=== PATIENT | female | born 1995 | race Caucasian/White ===

== ENCOUNTER 2019-08-22 23:44 | Inpatient (IN) ==
[2019-08-22 23:59] LABS: URINE SOURCE VOIDED
[2019-08-23] MEDS ORDERED: REGLAN PO PRN (00:06)
[2019-08-23] MEDS ORDERED: KEFZOL 2 GM/D5W 2 GM/50 ML IVPB IV PRN (00:06)
[2019-08-23] MEDS ORDERED: PEPCID PO PRN ×2 (00:06)
[2019-08-23] MEDS ORDERED: PEPCID IV PRN (00:06)
[2019-08-23] MEDS ORDERED: TYLENOL PO PRN (00:06)
[2019-08-23] MEDS ORDERED: AMPICILLIN 2 GM in NS 100 ML IV ONE (00:06)
[2019-08-23] MEDS ORDERED: STADOL IV PRN (00:06)
[2019-08-23] MEDS ORDERED: ZOFRAN IV PRN (00:06)
[2019-08-23] MEDS ORDERED: XYLOCAINE-MPF 1% INJ PRN (00:10)
[2019-08-23] MEDS ORDERED: MINERAL OIL TOP PRN (00:10)
[2019-08-23 00:11] LABS: BILIRUBIN URINE NEGATIVE (NEGATIVE); BLOOD URINE NEGATIVE (NEGATIVE); COLOR YELLOW; GLUCOSE URINE NEGATIVE (NEGATIVE); KETONE URINE NEGATIVE (NEGATIVE); LEUKOCYTES URINE NEGATIVE (NEGATIVE); NITRITE URINE NEGATIVE (NEGATIVE); PH URINE 7.5; PROTEIN URINE NEGATIVE (NEGATIVE); SP GRAVITY URINE 1.015; TURBIDITY URINE CLEAR (CLEAR); UROBILINOGEN URINE NORMAL (NORMAL)
[2019-08-23] MEDS ORDERED: SODIUM CHLORIDE 0.9% INJ SCH (00:15)
[2019-08-23] MEDS ORDERED: PITOCIN 30 UNITS/NS 30 UNIT/500 ML IV.SOLN IV SCH ×2 (00:15→07:30)
[2019-08-23 00:19] LABS: UR AMPHETAMINES QUAL NONE DETECTED (NONE DETECT); UR BARBITUATES QUAL NONE DETECTED (NONE DETECT); UR BENZODIAZEPIN QUAL NONE DETECTED (NONE DETECT); UR CANNABINOIDS QUAL NONE DETECTED (NONE DETECT); UR COCAINE QUAL NONE DETECTED (NONE DETECT); UR METHADONE QUAL NONE DETECTED (NONE DETECT); UR OPIATES QUAL NONE DETECTED (NONE DETECT); UR OXYCODONE QUAL NONE DETECTED (NONE DETECT); UR PCP QUAL NONE DETECTED (NONE DETECT)
[2019-08-23] MEDS: LR 1,000 ML IV SCH ×2 (00:40→03:30)
[2019-08-23 01:52] LABS: BASO# 0.02 X1000 (0.0-0.2); BASO% 0.2 % (0.0-0.8); EOS# 0.02 X1000 (0.0-0.7); EOS% 0.2 % (0.0-10.0); HEMATOCRIT 41.7 % (37.0-47.0); HEMOGLOBIN 13.7 g/dL (12.0-16.0); IMM GRAN# 0.26 X1000 (0.0-0.04); IMM GRAN% 2.1 % (0.0-0.5); LYMPH# 1.67 X1000 (1.2-3.4); LYMPH% 13.7 % (20.5-51.1); MCH 29.5 PG (27-31); MCHC 32.9 g/dL (33-37); MCV 89.9 FL (81-99); MONO# 1.29 X1000 (0.11-0.59); MONO% 10.6 % (1.7-9.3); MPV 12.9 FL (7.4-10.4); NEUT# 8.92 X1000 (1.4-6.5); NEUT% 73.2 % (42.2-75.2); PLT 208 X1000 (130-400); RBC 4.64 XMIL (4.2-5.4); RDW 14.6 % (11.5-14.5); WBC 12.18 X1000 (4.8-10.8)
[2019-08-23] MEDS ORDERED: FENTANYL IV ONE (01:54)
[2019-08-23] MEDS ORDERED: NAROPIN 0.2% INJ ONE (01:55)
[2019-08-23] MEDS ORDERED: NEO-SYNEPHRINE IV ONE (01:56)
[2019-08-23] MEDS ORDERED: SODIUM CHLORIDE 0.9% INJ ONE (01:57)
[2019-08-23] MEDS ORDERED: FENTANYL-BUPIV-NS 500 MCG-0.125% 250 ML EPIDURAL SCH (02:23)
[2019-08-23] MEDS ORDERED: AMPICILLIN 1 GM in NS 50 ML IV SCH (04:09)
[2019-08-23] MEDS ORDERED: BOOSTRIX VACCINE IM ONE (07:29)
[2019-08-23] MEDS ORDERED: BENADRYL PO PRN (07:29)
[2019-08-23] MEDS ORDERED: PITOCIN IM PRN (07:29)
[2019-08-23] MEDS ORDERED: BENADRYL IV PRN (07:29)
[2019-08-23] MEDS ORDERED: CYTOTEC PO PRN (07:29)
[2019-08-23] MEDS ORDERED: ATARAX PO PRN (07:29)
[2019-08-23] MEDS ORDERED: M-M-R II VACCINE SUBQ ONE (07:29)
[2019-08-23] MEDS ORDERED: AMBIEN PO PRN (07:29)
[2019-08-23] MEDS ORDERED: HYDROXYZINE IM PRN (07:29)
[2019-08-23] MEDS ORDERED: NORCO-5 PO PRN (07:29)
[2019-08-23] MEDS ORDERED: PITOCIN 20 UNITS/NS 20 UNITS/1,000 ML IV.SOLN IV SCH (07:30)
[2019-08-23] MEDS: MOTRIN PO PRN ×3 (08:00→23:39)
[2019-08-23] MEDS: PERI MEDS (DERMOPLAST/NUPERCAINAL/TUCKS) MISC PRN (08:01)
[2019-08-23] MEDS: NORCO-10 PO PRN ×2 (15:07→22:42)
[2019-08-23] MEDS: PERICOLACE PO SCH (22:41)
[2019-08-24 05:25] LABS: BASO# 0.02 X1000 (0.0-0.2); BASO% 0.2 % (0.0-0.8); EOS# 0.05 X1000 (0.0-0.7); EOS% 0.4 % (0.0-10.0); HEMATOCRIT 36.1 % (37.0-47.0); HEMOGLOBIN 11.7 g/dL (12.0-16.0); IMM GRAN# 0.13 X1000 (0.0-0.04); LYMPH# 1.71 X1000 (1.2-3.4); LYMPH% 13.1 % (20.5-51.1); MCHC 32.4 g/dL (33-37); MCV 92.6 FL (81-99); MONO# 0.99 X1000 (0.11-0.59); MONO% 7.6 % (1.7-9.3); MPV 11.9 FL (7.4-10.4); NEUT# 10.19 X1000 (1.4-6.5); NEUT% 77.7 % (42.2-75.2); PLT 161 X1000 (130-400); RDW 14.7 % (11.5-14.5); WBC 13.09 X1000 (4.8-10.8)
[2019-08-24] MEDS: NORCO-10 PO PRN ×4 (06:05→19:10)
--- NOTE | 2019-08-24 08:20 | PROGRESS NOTE ---
DATE: 08/24/2019 SUBJECTIVE: A 24-year-old female G 1 , P 0-1-0-1, day number 1 status post spontaneous vaginal delivery with second-degree laceration. Currently, the patient states to be feeling well. The patient states decreased lochia. The patient is ambulating and voiding urine without complaints. The patient states she has not had a bowel movement yet. The patient has no nausea or vomiting, tolerating oral diet. The patient has not had a bowel movement but has passed gas. The patient states she has plans to take control pills. She states that she has plans for bottle feeding. OBJECTIVE: Vital signs: Current temperature 97.7, heart rate 69, respiratory rate 20, blood pressure 122/77, oxygen 98 on room air. General: Alert, oriented, no acute distress. Neck: Supple. No JVD. HEENT: Mucosa is pink and moist. Anicteric. Acyanotic. Chest: Lungs clear to auscultation. No rales, no rhonchi. Cardiovascular: Regular rate and rhythm. No rubs, no murmurs or gallops. Abdomen: Soft, nontender. Uterus is firm below the level of the umbilicus. Musculoskeletal: 2+ pedal pulses bilaterally. No pedal edema. LABORATORY: White blood cells 13, hemoglobin 11.7, hematocrit 36.6, platelets are 161,000. RPR nonreactive. Blood type O positive, RH negative. ASSESSMENT: A 24-year-old 1 now para 0-1-0-1 day number 1 status post spontaneous vaginal delivery with second-degree laceration at 35 weeks and 3/7 days. PLAN: 1. Routine care. 2. P.o. pain control as needed. 3. Encourage ambulation. 4. Contraception. The patient stated desire to resume taking oral contraceptive pills. 5. The patient states desire to follow up with Dr. Whitten once out of the hospital for routine visit. Dictated by Santhosh Canada, Medical Student for Leeanna Whitten DO This chart was documented by, Obie Shaver Student and accurately reflects the services performed, treatment plan and medical decisions as attested by the providers signature Leeanna Whitten DO. I personally saw and evaluated the pt with MS-3 and agree with assessment and plan. Discussed contraception options with pt and with discussed further in outpt setting. Advised no coitus x 6 weeks and increased ambulation. Based on currently findings, likely d/c home tomorrow. MTDD
[2019-08-24] MEDS: MOTRIN PO PRN ×2 (09:54→19:10)
[2019-08-24] MEDS: PERI MEDS (DERMOPLAST/NUPERCAINAL/TUCKS) MISC PRN (11:36)
[2019-08-24] MEDS: PATIENT'S OWN MED PO SCH (21:35)
[2019-08-24] MEDS: PERICOLACE PO SCH (21:38)
[2019-08-24] MEDS ORDERED: FLAGYL PO SCH (21:45)
[2019-08-25] MEDS: NORCO-10 PO PRN ×3 (00:57→11:25)
[2019-08-25] MEDS: MOTRIN PO PRN (04:39)
[2019-08-25] MEDS: PATIENT'S OWN MED PO SCH (08:36)
[2019-08-25 08:46] VITALS: BP 139/82
--- NOTE | 2019-08-25 09:11 | HISTORY AND PHYSICAL ---
HISTORY OF PRESENT ILLNESS: The patient is a 24-year-old, 1, para 0, who presented to Labor and Delivery at 7 cm dilated with bulging bag of water, unknown group B strep status. She had previously been admitted several days prior to the current admission for threatened labor. With no care, an ultrasound done at that time was 34 and 5/7 weeks gestation. She was started on magnesium tocolysis at 3 cm dilated, given 2 doses Celestone and discharged home after proving to be stable overnight. She now presents at 35 and 4/7 in active phase of labor. PREVIOUS MEDICAL HISTORY: Negative. PREVIOUS SURGICAL HISTORY: Negative. ALLERGIES TO MEDICINES: None. MEDICINES: vitamins. FAMILY HISTORY: Noncontributory. REVIEW OF SYSTEMS: Negative for chest pain, shortness of breath, headache, cough, runny nose, fever, sore throat. PHYSICAL EXAM: GENERAL: This is a well-developed, well-nourished woman appearing her stated age. HEENT: Grossly normal. LUNGS: Nonlabored breathing. HEART: Regular rate and rhythm. ABDOMEN: Gravid. PELVIC EXAM: As above. LABS: RPR negative. Urine negative. Hemoglobin 13.7, 208 platelets. Blood type is O positive with a negative screen. ASSESSMENT: 1. This is a 24-year-old, 1 at 35 and a half weeks gestation in active phase of labor. Plan is to start antibiotics for group B strep prophylaxis, rupture of membranes, but not complete, and anticipate normal spontaneous vaginal delivery. 2. well-being is positive. 3. Ampicillin. 4. Anticipate normal spontaneous vaginal delivery. 5. Estimated weight is 2200 g. [facility]#: [id number]
[2019-08-25] MEDS ORDERED: PNEUMOVAX 23 IM ONE (09:30)
[2019-08-25] MEDS: PERI MEDS (DERMOPLAST/NUPERCAINAL/TUCKS) MISC PRN (11:09)
--- NOTE | 2019-08-25 16:17 | OPERATIVE NOTE ---
ADMISSION DATE: 08/23/2019 DISCHARGE DATE: 08/25/2019 Day of delivery is 08/23/2019. The patient was admitted in active phase of labor, underwent spontaneous rupture of membranes. She pushed in 2nd stage of labor per approximately 30 minute and delivered a live-born infant over a perineal vaginal laceration first-degree. The was handed to the maternal abdomen and the cord clamped x2 and cut. The infant is 5 pounds 1 ounce, Apgars 7 and 9. The cord blood is obtained along with cord gases, and the placenta was delivered intact with a three-vessel cord and spontaneously. The perineum was repaired with 3-0 Vicryl on an SH. Post procedure the perineum was intact and hemostatic. Estimated blood loss 300 mL.
--- NOTE | 2019-08-25 16:19 | DISCHARGE SUMMARY ---
ADMISSION DATE: 08/23/2019 DISCHARGE DATE: 08/25/2019 Stephany is a 24-year-old 1, para 0 now 1, who presented to Labor and Delivery in active phase of labor at 34-1/2 weeks gestation. She underwent a normal spontaneous vaginal delivery without difficulty or complication. Please see separate delivery note. Her course was uncomplicated. On day #1, she is afebrile with stable vital signs. She is ambulating, voiding, tolerating a regular diet. Hemoglobin 11.7, down from 13. On day #2, she is ambulating, voiding, tolerating a regular diet. Vital signs stable, afebrile, having no complications. Baby is under blue lights. She is discharged home to [facility] in stable condition. She is asked to follow up in the office in 6 weeks. Call the office for pain, fever greater than 100.4 degrees, or abnormal vaginal bleeding. Maintain pelvic rest and regular diet. Continue vitamins with iron. A prescription for Motrin provided.
== END 2019-08-25 11:28 | disposition home or self-care (01) | DRG 807 ==
LOC: OPLD 23:44 → LD 23:45
PROVIDERS: ADMIT Obstetrics & Gynecology; ATTEND Obstetrics & Gynecology